=== PATIENT | male | born 1990 | race Caucasian/White ===

== ENCOUNTER 2022-10-01 16:20 | Emergency (ER) | payer OTHER, SELFPAY ==
[2022-10-01 16:21] VITALS: BP 152/99; PULSE 99; RESP 16; TEMP 36.7; O2SAT 98
--- NOTE | 2022-10-01 16:27 | ED_ITS ---
HPI - Animal Bite General Chief Complaint: Animal Bite Stated Complaint: spider bite Time Seen by Provider: 10/01/22 16:24 History of Present Illness HPI narrative: 32-year-old male presents to the emergency room for evaluation of a possible spider bite. States he was woken up at 430 this morning to a stinging sensation to his right buttock. States he was able to find a brown recluse spider killed it. Patient did not witness the spider bite him. Patient complaining of pain, redness to his right buttock. Denies fever. Related Data Allergies Allergy/AdvReac Type Severity Reaction Status Date / Time No Known Allergies Allergy Unverified 12/20/18 08:33 Review of Systems Review of Systems: CONSTITUTIONAL: Denies fever, chills, or sweats. EYES: Denies visual changes, redness, or discharge. ENT: Denies rhinorrhea, congestion, sore throat, or otalgia. CARDIOVASCULAR: Denies chest pain, palpitations, or edema. RESPIRATORY: Denies cough or dyspnea. GASTROINTESTINAL: Denies abdominal pain, nausea, vomiting, or diarrhea. GENITOURINARY: Denies dysuria or hematuria. SKIN: Denies rash or itching. MUSCULOSKELETAL: Denies back pain, joint pain, or myalgia. NEUROLOGIC: Denies headache, numbness, dizziness, or weakness. PSYCHIATRIC: Denies anxiety or depression. Exam Narrative: GENERAL: Well-appearing, well-nourished, no physical limitations, and in no acute distress. HEAD: Normocephalic, atraumatic. EYES: Conjunctivae normal, PERRLA and EOMI. CHEST: Clear to auscultation. No respiratory distress. No wheezes rales or rhonchi. HEART: Regular rate and rhythm. No murmur heard. Normal peripheral pulses. EXTREMITIES: Normal range of motion. No edema. No clubbing or cyanosis SKIN: Right glute: Large area of erythema, tenderness and warmth. There is a centralized vesicle. No purulent drainage. No signs of lymphangitic spread. NEURO: No focal deficits. Alert and oriented x3. MAEW. CN's II-XI intact bilaterally, normal gait PSYCH: Cooperative. Normal mood and affect. Course Vital Signs Vital signs: Vital Signs Temperature 36.7 C 10/01/22 16:21 Pulse Rate 99 10/01/22 16:21 Respiratory Rate 16 10/01/22 16:21 Blood Pressure 152/99 H 10/01/22 16:21 Pulse Oximetry 98 10/01/22 16:21 Oxygen Delivery Room Air 10/01/22 16:21 Temperature 36.7 C 10/01/22 16:21 Pulse Rate 99 10/01/22 16:21 Respiratory Rate 16 10/01/22 16:21 Blood Pressure 152/99 H 10/01/22 16:21 Pulse Oximetry 98 10/01/22 16:21 Oxygen Delivery Room Air 10/01/22 16:21 Discharge Plan Discharge Clinical Impression: Insect bite Patient Disposition: Home, Self-Care Condition: Stable Instructions: Antibiotic Form, Insect Bite or Sting (ED) Additional Instructions: Recommend taking a daily Zyrtec or Gricelda for her symptoms. May take Benadryl at night for the itching. If you develop an ulceration or notice red streaking, follow-up with your primary care doctor or return to the emergency room. Prescriptions: New prednisone 20 mg tablet 40 mg PO DAILY 5 Days Qty: 10 0RF Follow-up/Referrals: PHYSICIAN,SINGLE POINTED OPERATOR [Primary Care Provider] - Time of Disposition: 16:30
[2022-10-01] MEDS: diphenhydrAMINE HCl CAP 25 MG CAPSULE 50 MG PO (16:33)
== END 2022-10-01 16:32 | disposition home or self-care (01) ==
LOC: ANHED 17:10
PROVIDERS: Emergency Provider Nurse Practitioner Family; PCP Emergency Medicine
DX: T63.331A Toxic effect of venom of brown recluse spider, accidental (unintentional), initial encounter (principal)
CPT/HCPCS: 90471; 96372; 99283; A9270; J1100

== ENCOUNTER 2022-10-07 02:24 | Emergency (ER) | payer OTHER, SELFPAY ==
[2022-10-07 02:27] VITALS: BP 142/98; PULSE 100; RESP 16; TEMP 36.8; O2SAT 98
--- NOTE | 2022-10-07 02:35 | PC.NURSE ---
wound cleaned with ns and wound dressed with gauze and coban.
--- NOTE | 2022-10-07 02:45 | PC.NURSE ---
pt was cursing loud in wr. Security told pt to stop cursing and to lower voice. pt started cursing at security and left with .
== END 2022-10-07 02:45 | disposition left against medical advice (07) ==
PROVIDERS: PCP Emergency Medicine
DX: S01.81XA Laceration without foreign body of other part of head, initial encounter (principal)
CPT/HCPCS: 99199